=== PATIENT | female | born 2005 | race Caucasian/White ===

== ENCOUNTER 2023-11-05 12:34 | Emergency (ER) | payer SELFPAY ==
[2023-11-05 12:34] VITALS: BP 123/98; PULSE 81; RESP 14; TEMP 36.6; O2SAT 99
[2023-11-05 12:39] VITALS: BMI 40.7
--- NOTE | 2023-11-05 13:01 | EKG12_ITS ---
Test Reason : CP FOR MONTHS Blood Pressure : / mmHG Vent. Rate : 078 BPM Atrial Rate : 078 BPM P-R Int : 166 ms QRS Dur : 084 ms QT Int : 396 ms P-R-T Axes : 027 018 014 degrees QTc Int : 451 ms Normal sinus rhythm Minimal voltage criteria for LVH, may be normal variant ( R in aVL ) Borderline ECG Confirmed by NGOZI SUE, SUSIE ([id number]), editor sound RUTHIE GAYTAN ([id number]) on 11/08/2023 9:33:33 AM Referred By: DONAVON/TL Confirmed By:CAITLIN MELVIN MD
[2023-11-05 13:32] LABS: Absolute Lymphocyte Count 2.83 X10^3/uL (0.83-4.51); Absolute Neutrophil Count 8.1 X10^3/uL (2.0-7.7); Basophil# 0.06 X10^3/uL; Basophil% 0.5 % (0-1); Eosinophil# 0.09 X10^3/uL; Eosinophils% 0.8 % (0-5); Hematocrit 39.7 % (37-47); Hemoglobin 13.4 g/dL (12.0-15.0); Lymphocyte # 2.83 X10^3/ul (0.83-4.51); Lymphocyte % 23.8 % (19-41); Mean Corp Hgb Conc 33.8 g/dL (32-36); Mean Platelet Vol. 9.8 fl (6.2-12.0); Monocyte# 0.76 X10^3/uL; Monocyte% 6.4 % (0-10); NRBC Flagged by Analyzer 0 % (0-5); Neutrophil # 8.09 X10^3/uL (2.7-7.7); Neutrophil % 68.1 % (47-70); Platelet Count 360 K/mm3 (150-450); RBC Distribution Width CV 13.1 % (11.6-14.6); RBC Distribution Width SD 37.2 fl (35.1-43.9); Red Blood Count 4.96 M/mm3 (4.2-5.4); White Blood Count 11.9 K/mm3 (4.4-11.0)
[2023-11-05 13:42] LABS: Internal QC Validated? YES +Cl - CLEAR BKGD; Pregnancy, Serum, hCG Quali. NEGATIVE Negative
[2023-11-05 13:45] LABS: D-Dimer Quantitative (DVT/PE) 0.32 FEU/ug/m (0.27-0.49)
[2023-11-05 13:51] LABS: Anion Gap 8 (5-15); BUN 11 mg/dL (7-18); BUN/Creat Ratio 16.1 RATIO (10-20); Chloride 110 mmol/L (98-107); Creatinine, Serum 0.68 mg/dL (0.55-1.02); EST Glomerular Filtration Rate 116 mL/min (>60); Est Glom Filt Rate - Afr Amer 140 mL/min (>60); Glucose 126 mg/dL (74-106); Potassium 3.5 mmol/L (3.5-5.1); Sodium Level 141 mmol/L (136-145); Troponin-I HS (w/2H Reflex) < 3 pg/mL (3.0-54.0)
[2023-11-05] MEDS: Ketorolac 15 MG/ML Vial IV (13:57)
--- NOTE | 2023-11-05 14:03 | EDS_ITS ---
HPI History of Present Illness Chief Complaint: Chest Pain Informant: patient and spouse/S.O. Narrative Narrative: Presents with increasing dyspnea at work left-sided chest pain with a syncopal episode. Been having on and off dyspnea wheeze. Denies tobacco. Denies recent travel, surgeries, or immobilizations. No history PE or DVT. Does not have a PCP. Has not had evaluation of her dyspnea. She does not take control. Started menstrual period today. Denies cough symptoms. Denies fevers. Denies history of similar. Denies hyper to diabetes hyperlipidemia. Denies history of gastric ulcers or kidney injury. Prior Similar Symptoms: No CVD Risk Factors: Negative for Hypertension, Diabetes, Hypercholesterolemia or Smoking PE Risk Factors: Negative for Recent Travel/Surgery, Recent Immobilization, Prior DVT or PE or OCP + Smoking + >/=35 PFSH PFSH Medical History no medical history Allergy/AdvReac Type Severity Reaction Status Date / Time No Known Allergies Allergy Verified 11/05/23 12:34 Family History no significant family his Surgical History no surgical history Social History Smoking Status: Never smoker ROS ROS ED Constitutional Constitutional ED: Denies chills, fever(s) or sweats Eyes Eyes: Denies change in vision ENT ENT ED: Denies dysphagia or sore throat Cardiovascular Cardiovascular: Reports chest pain; Denies leg edema, palpitations or racing heartbeat Respiratory/Chest Respiratory/Chest: Reports dyspnea; Denies cough or dyspnea on exertion Gastrointestinal Gastrointestinal: Denies abdominal pain, diarrhea, nausea or vomiting Genitourinary Genitourinary ED: Denies dysuria, hematuria or urinary frequency Musculoskeletal Musculoskeletal: Denies back pain, extremity pain or neck pain Integumentary Denies rash or wounds Neurologic Neurologic: Denies headache(s), paresthesias or weakness EXAM Physical Exam Const Vital Signs: 11/05/23 12:34 11/05/23 13:02 11/05/23 14:30 Temperature 98 F 98.0 F Temperature Source Temporal Pulse Rate 81 81 Respiratory Rate 14 20 H Respiratory Effort Normal Blood Pressure 123/98 H 115/74 Blood Pressure Mean 106 87 Pulse Ox 99 95 Oxygen Delivery Method Room Air Positive well nourished and well developed General Appearance ED: well developed and NAD HEENT Reports moist mucous membranes normocephalic and atraumatic Eyes EOMs intact bilaterally and conjunctivae normal General Eye ED: Yes normal appearance of both eyes Neck no lymphadenopathy and supple General: Negative for tenderness Chest Wall Chest: Negative for tenderness Resp normal respiratory effort and normal air movement Resp Narrative: Symmetric breath sounds Effort and Inspection: symmetric chest movement; Negative for respiratory distress Cardio regular rate, regular rhythm and no murmurs Peripheral Pulses: pulses 2+ throughout GI normal to inspection, nondistended, normoactive bowel sounds and non-tender Palpation: Negative for guarding or rebound tenderness present Back/Spine no CVA tenderness and no thoracic nor lumbar tenderness Extremity normal to inspection General Extremety ED: Negative for edema or tenderness General Extremity: Negative for edema Neuro oriented x3, CN's II-XII intact bilaterally and no sensory deficits noted Sensorium / Orientation: awake and alert Skin no rashes or lesions noted and no wounds MDM MDM MDM Narrative Medical decision making narrative: Interventions / MDM: Differential diagnosis: Syncope, atypical chest pain, dyspnea Diagnosis considered but do not suspect: ACS however EKG with no ischemic changes and cardiac enzymes negative per algorithm. Pulmonary embolus however negative D-dimer with low risk Wells criteria and syncope. Pneumothorax however x-ray negative. My EKG interpretation: Sinus rate of 78, no ST or T wave changes. Extra T wave version lead III nonspecific. QTc 451. Imaging independently reviewed and interpreted by myself: 2 view chest x-ray: No acute process. External documents reviewed: N/A Test considered but not ordered:N/A ED course: Patient mild left-sided chest pain syncopal episode. EKG with no ischemic findings. Cardiac workup initiated D-dimer added secondary to her chronic dyspnea and syncopal episode. She is given Toradol for pain. Cardiac workup negative troponin less than 3. No ACS concerns following cardiac algorithm. D-dimer negative. Symptom-free on reevaluation. Patient given follow-up as an outpatient with return precautions. All questions were answered. Re-evaluation: stable Disposition discussed with patient/family/significant other: Patient and significant other Case discussed with consulting clinician: N/A This note was generated with [employer] dictation software. It may contain incorrect words, spelling, and punctuation that were not noted in checking the note before signing. Lab Data Attestation: I reviewed the patient's lab results. Labs: Laboratory Results - last 24 hr 11/05/23 12:20 WBC 11.9 H RBC 4.96 Hgb 13.4 Hct 39.7 MCV 80.0 L MCH 27.0 MCHC 33.8 RDW Std Deviation 37.2 RDW Coeff of Lesa 13.1 Plt Count 360 MPV 9.8 Immature Gran % (Auto) 0.400 Neut % (Auto) 68.1 Lymph % (Auto) 23.8 [place] % (Auto) 6.4 Eos % (Auto) 0.8 Baso % (Auto) 0.5 Absolute Neuts (auto) 8.1 H Absolute Lymphs (auto) 2.83 Nucleated RBC % 0 D-Dimer Quant (PE/DVT) 0.32 Sodium 141 Potassium 3.5 Chloride 110 H Carbon Dioxide 23.0 Anion Gap 8 BUN 11 Creatinine 0.68 Estim Creat Clear Calc 152.50 Est GFR (MDRD) Af Amer 140 Est GFR (MDRD) Non-Af 116 BUN/Creatinine Ratio 16.1 Glucose 126 H Calcium 9.0 Troponin I High Sens < 3 L Serum , Qual NEGATIVE Radiography Diagnostic Testing: Clinical Impression(s) from Imaging Studies Chest X-Ray 11/05/23 14:10 IMPRESSION: No acute pulmonary finding. Electronically Signed: Cl Alexander MD at 14:21 EDT Reading Location ID and State: [facility] / [place] Tel , Service support , Discharge Plan Triage Chief Complaint: Chest Pain ED Provider: Ivan Sams Dx/Rx/DC Orders Clinical Impression: Chest pain, Dyspnea, Syncope Instructions: Causes of Syncope, ED Chest Pain, Noncardiac, ED Dyspnea Stand Alone Forms: Work / School Excuse Primary Care Provider: Care Physician,No Primary Referrals: Demi Grewal [Non-Staff] - 1 Week Care Physician,No Primary [Primary Care Provider] - Activity Restrictions/Additional Instructions: EKG normal cardiac workup negative D-dimer negative. Chest x-ray negative. Follow-up outpatient further evaluation and testing as needed. If symptoms recur and worsens return to the ED for reevaluation. Print Language: Indonesian Disposition Disposition: Home, Self Care Discharge Date/Time: 11/05/23 14:34
--- NOTE | 2023-11-05 14:10 | RAD_ITS ---
INDICATION: chest pain EXAMINATION/TECHNIQUE: X-RAY - XR Chest 2 Views COMPARISON: No relevant prior comparison study available FINDINGS: LINES/DEVICES: None. LUNGS: The lungs are well expanded. No consolidation, edema or effusion. No pneumothorax. MEDIASTINUM AND CARDIOVASCULAR STRUCTURES: Cardiac silhouette not enlarged. Central airways and mediastinal contour are unremarkable. BONES AND SOFT TISSUES: No acute abnormality. RAD/Chest PA and Lateral IMPRESSION: No acute pulmonary finding. Electronically Signed: Cl Alexander MD at 14:21 EDT ,
[2023-11-05 14:30] VITALS: BP 115/74; PULSE 81; RESP 20; TEMP 36.7; O2SAT 95
[2023-11-05 15:25] LABS: Reflex Troponin-HS? (from REC) Y
== END 2023-11-05 14:34 | disposition home or self-care (01) ==
PROVIDERS: Emergency Provider Emergency Medicine; Visit Provider Emergency Medicine
DX: R07.89 Other chest pain (principal); R55 Syncope and collapse; R06.00 Dyspnea, unspecified
CPT/HCPCS: 71046; 80048; 84484; 84703; 85025; 85379; 93005; 96374; 99285; A4216

== ENCOUNTER 2024-07-29 19:50 | Emergency (ER) | payer SELFPAY ==
[2024-07-29 19:51] VITALS: BP 153/90; PULSE 71; RESP 15; TEMP 35.8; O2SAT 100
[2024-07-29 19:55] VITALS: BMI 37.3
--- NOTE | 2024-07-29 20:35 | EDS_ITS ---
HPI <NERIS Jones - Last Filed: 07/29/24 21:19> HPI - Female History of Present Illness Chief Complaint: Female C/O Narrative Narrative: Patient presenting today with concerns for irritation and itching to her groin and perineal region after she sat on the toilet at a gas station this evening. Her symptoms started about 15 minutes later. She reports that her significant other looked at the area and saw a few black spots that he was able to remove. She denies any concerns for STDs, she denies any abnormal vaginal discharge, dysuria, hematuria, or urinary frequency. She has had no fevers or chills. PFSH <NERIS Jones - Last Filed: 07/29/24 21:19> [facility] Home Medications ?Medication ?Instructions ?Recorded ?Last Taken ?Type hydrocortisone 1 % topical cream 1 applic topical TID PRN skin 07/29/24 Unknown Rx irritation #28.35 grams Allergy/AdvReac Type Severity Reaction Status Date / Time No Known Allergies Allergy Verified 07/29/24 19:51 Family History no significant family his Surgical History no surgical history Social History Smoking Status: Never smoker ROS <NERIS Jones - Last Filed: 07/29/24 21:19> ROS ED Constitutional Constitutional ED: Denies chills or fever(s) Cardiovascular Cardiovascular: Denies chest pain Respiratory/Chest Respiratory/Chest: Denies dyspnea Gastrointestinal Gastrointestinal: Denies abdominal pain, nausea or vomiting Genitourinary Genitourinary ED: Denies dysuria, hematuria or urinary urgency Integumentary Reports other Details: Skin irritation to the groin Neurologic Neurologic: Denies weakness EXAM <NERIS Jones - Last Filed: 07/29/24 21:19> Physical Exam Const Vital Signs: 07/29/24 19:51 07/29/24 20:43 Temperature 96.5 F L 98 F Temperature Source Temporal Pulse Rate 71 74 Respiratory Rate 15 14 Blood Pressure 153/90 H 129/74 H Blood Pressure Mean 111 92 Pulse Ox 100 99 Oxygen Delivery Method Room Air Positive well nourished, well developed and no apparent distress General Appearance ED: well developed HEENT Reports normocephalic and head/scalp atraumatic Mouth ED: Yes moist mucous membranes normal Eyes PERRL and EOMs intact bilaterally Neck full ROM and supple Chest Wall inspection of chest normal Resp normal respiratory effort and clear to auscultation bilaterally Cardio regular rate and regular rhythm GI soft to palpation, non-tender, non-distended and no masses Narrative: Normal external genitalia, there is a black speck on her mons pubis that I removed, this is consistent with possibly a piece of dirt but is nonspecific looking. She has erythema to the bilateral groin consistent with skin irritation. No obvious lesions. Back/Spine normal ROM and normal to inspection Extremity normal to inspection and full ROM Neuro moves all extremities, no focal motor deficits and no sensory deficits noted Sensorium / Orientation: awake and alert Psych mental status grossly normal and thought process normal Skin no rashes or lesions noted and no wounds <Dr. Elder Landry, - Last Filed: 07/29/24 20:43> Physical Exam Const Vital Signs: 07/29/24 19:51 07/29/24 20:43 Temperature 96.5 F L 98 F Temperature Source Temporal Pulse Rate 71 74 Respiratory Rate 15 14 Blood Pressure 153/90 H 129/74 H Blood Pressure Mean 111 92 Pulse Ox 100 99 Oxygen Delivery Method Room Air [facility] <NERIS Jones - Last Filed: 07/29/24 21:19> [facility] Narrative Medical decision making narrative: Patient presenting today due to concerns for irritation to her groin and perineum and black spots noticed on her perineum after sitting on a public toilet this evening. Her symptoms started about 15 minutes later. On exam she had a black speck located on her mons pubis that was easily removable, it looked consistent with dirt, it was nonspecific in appearance. She has some erythema to her groin consistent with skin irritation. Suspect when sitting on the toilet there could have possibly been street cleaner or some sort of irritant that caused a contact dermatitis. I will give her a prescription for hydrocortisone cream to place on the area. She otherwise does not have concerns for STDs, I did not visualize any lesions. I recommended she shower when she get home and clean the area with a nonscented soap. I recommended outpatient follow-up with her PCP. She he is otherwise well-appearing and will be discharged home in stable condition. <Dr. Elder Landry, - Last Filed: 07/29/24 20:43> [facility] Treatment and Re-Evaluation Narrative: I have personally performed a face to face assessment of the patient and have reviewed the CARLY Note. I performed a substantive portion of the visit including all aspects of the following. My fair findings include: History: Patient presents with perineal itching and burning that began today. Patient states he used the pelvic restroom started having some burning and itching over her perineum shortly after that. Patient states that her boyfriend also noted some black spots on her perineum. Patient denies any fevers or chills. Patient denies any nausea or vomiting. Patient denies any dysuria or hematuria. Exam: Vital signs are stable. Patient is afebrile. Patient is in no acute distress. Heart was regular rate and rhythm. Lungs are clear and equal bilaterally. Abdomen is soft. Bowel sounds are normal. There is no tenderness. There is no guarding or rebound noted. Oral mucosa is pink and moist. Neck is supple. Trachea is midline. There is no JVD. Cranial nerves II through XII are intact. There are no focal motor or sensory deficits noted. Medical Decision Making: Genital exam was performed by the CARLY. There is no vaginal discharge or bleeding. There are no foreign bodies noted. Patient was advised that this could be irritation from a street cleaner that was used on the toilet seat. Patient was advised to go home and shower or bathe sure her perineum is clean. Patient was instructed to allow the perineal area to dry thoroughly. Patient was instructed to follow-up with her primary care physician in 5 to 7 days. Patient was instructed to return if worse in any way. Patient understood and was agreeable with the plan. All questions were answered. Discharge Plan Triage Chief Complaint: Female C/O ED Midlevel Provider: Shereen Asher ED Provider: Elder Landry Dx/Rx/DC Orders Clinical Impression: Contact dermatitis Instructions: ED Contact Dermatitis Prescriptions: New hydrocortisone 1 % cream 1 applic topical TID PRN (Reason: skin irritation) Qty: 28.35 0RF Primary Care Provider: Care Physician,No Primary Referrals: Care Physician,No Primary [Primary Care Provider] - Activity Restrictions/Additional Instructions: [facility] will take people without insurance, you can discuss payment plan options with them. You can call the [place] [employer] to discuss health insurance options. Return for any other concerns. Print Language: [place] Disposition Disposition: Home, Self Care Discharge Date/Time: 07/29/24 20:46
[2024-07-29 20:43] VITALS: BP 129/74; PULSE 74; RESP 14; TEMP 36.6; O2SAT 99
== END 2024-07-29 20:46 | disposition home or self-care (01) ==
PROVIDERS: Emergency Provider Emergency Medicine; Visit Provider Emergency Medicine
DX: L25.9 Unspecified contact dermatitis, unspecified cause (principal)
CPT/HCPCS: 99282